=== PATIENT | male | born 1965 | race Caucasian/White ===

== ENCOUNTER 2020-12-10 19:02 | Emergency (ER) | payer OTHER ==
[~2020-12-10 19:02] MED LIST: ATARAX25 MG PO; BACLOFEN 20MG T20 MG PO; CLONIDINE 0.2M0.2 MG PO; DOXYCYCLINE MO100 MG PO; FLEXERIL10 MG PO; IBUPROFEN800 MG PO; MEDROL 4MG DOSEP4 MG PO; NORCO 5-325 TA1 EACH PO; PREDNISONE 20MG20 MG PO; PRINIVIL20 MG PO
[2020-12-10] MEDS ORDERED: COLCHICINE0.6 MG PB (19:52)
[2020-12-10] MEDS ORDERED: INDOCIN25 MG PO (19:52)
[2020-12-10] MEDS ORDERED: PREDNISONE 20MG20 MG PO (19:52)
== END 2020-12-10 20:30 | disposition home or self-care (01) ==
LOC: FER 19:02
DX: M10.9 Gout, unspecified (principal)
CPT/HCPCS: 99283; J7512